=== PATIENT | female | born 1985 | race Caucasian/White ===

== ENCOUNTER 2018-05-17 22:17 | Emergency (ER) | END 2018-05-18 00:40 | disposition home or self-care (01) ==

== ENCOUNTER 2019-01-14 20:59 | Emergency (ER) | payer OTHER ==
[~2019-01-14] VITALS: Ht 149.9 cm; Wt 62.3 kg
[~2019-01-14 20:59] MED LIST: CALC600T5 PO; IBUP-1542 PO; PREN1TAB62 PO
[2019-01-14 21:11] VITALS: Ht 149.9 cm; Wt 62.3 kg
[2019-01-14] MEDS ORDERED: ACETAMINOPHEN 500 MG TAB PO STA (22:33)
[2019-01-14] MEDS ORDERED: ACET-141 PO (22:47)
[2019-01-14] MEDS ORDERED: IBUP800T48 PO (22:47)
[2019-01-14] MEDS ORDERED: CYCL10TA7 PO (22:47)
[2019-01-14] MEDS ORDERED: DEXAMETHASONE (1 MG/ML PO SYG) PO ONE (23:00)
[2019-01-14] MEDS ORDERED: CYCLOBENZAPRINE 10 MG TAB PO ONE (23:00)
[2019-01-14] MEDS ORDERED: IBUPROFEN 800 MG TAB PO ONE (23:00)
[2019-01-15 01:05] VITALS: BP 118/68; PULSE 77; RESP 16
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
== END 2019-01-15 01:05 | disposition home or self-care (01) ==
LOC: FTE 20:59
DX: M54.6 Pain in thoracic spine (principal); R07.89 Other chest pain; M62.838 Other muscle spasm
CPT/HCPCS: Z7502; Z7610; 99283